=== PATIENT | female | born 1945 | race Caucasian/White ===

== ENCOUNTER 2021-09-25 18:13 | Outpatient (CLI) | payer MEDICARE, OTHER, SELFPAY ==
[2021-09-25 18:18] LABS: Add Urine Microscopic? NO; Charge for UA Resulting for Rev
[2021-09-25 18:31] LABS: Bilirubin Urine Neg (Negative); Blood Urine Neg (Negative); Glucose Urine UA Norm (Normal); Ketones Urine Negative (Negative); Leukocyte Esterase Urine Negative (Negative); Nitrate Urine Negative (Negative); Protein Urine Neg (Negative); Urine Appearance Clear (CLEAR); Urine Color Yellow (Yellow); Urobilinogen Urine Norm (Negative); pH Urine 7 (5-7)
== END 2021-09-25 18:14 | disposition home or self-care (01) ==
PROVIDERS: Family Provider Family Medicine; Visit Provider Family Medicine
DX: N39.0 Urinary tract infection, site not specified (principal)
CPT/HCPCS: 81003; 87086

== ENCOUNTER 2021-10-01 03:18 | Emergency (ER) | payer MEDICARE, OTHER, SELFPAY ==
[2021-10-01] VITALS (10 sets, daily range): BP systolic 133–183; BP diastolic 78–100; PULSE 64–88; RESP 12–26; TEMP 36.6; O2SAT 96–99; BMI 25.7
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
--- NOTE | 2021-10-01 03:36 | XRR_ITS ---
PROCEDURE INFORMATION: Exam: XR Chest Exam date and time: 10/01/2021 3:43 AM Age: 76 years old Clinical indication: Radiating; Prior surgery; Surgery date: 6+ months; Surgery type: RT shoulder; Patient HX: C/O chest pain with radiation to left arm. TECHNIQUE: Imaging protocol: XR of the chest. Views: 1 view. COMPARISON: CR Myelogram Cerv/Thor/Lumb [id number] 06/20/2015 9:09 AM FINDINGS: Lungs: No focal airspace disease. Pleural spaces: Unremarkable. No pleural effusion. No pneumothorax. Heart/Mediastinum: Cardiomediastinal silhouette is within normal limits. Bones/joints: Right reverse total shoulder arthroplasty. XR/XR chest 1V portable [id number] IMPRESSION: No acute cardiopulmonary abnormality.
--- NOTE | 2021-10-01 03:37 | ECG_ITS ---
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 Measurements Intervals [place] Rate: 81 P: 75 NV: 139 QRS: 59 QRSD: 75 T: 62 QT: 368 QTc: 429 Interpretive Statements SINUS RHYTHM No previous ECG available for comparison Electronically Signed On 10-01-2021 20:22:39 CDT by Radha Echols M.D. [id number]
[2021-10-01] MEDS: aspirin 81 mg Chew Tablet 324 MG PO (03:53)
[2021-10-01 04:03] LABS: Basophils # 0.1 10^3/uL (0.0-0.1); Basophils % 1.1 %; Eosinophils # 0.2 10^3/uL (0.0-0.8); Eosinophils % 2.2 %; Hematocrit 42.5 % (37.0-47.0); Lymphocytes # 1.1 10^3/uL (0.8-4.8); Lymphocytes % 15.4 %; Mean Corpuscular HGB Conc 32.9 g/dL (30.0-36.0); Mean Corpuscular Hemoglobin 31.4 pg (28.0-34.0); Mean Corpuscular Volume 95.3 fl (81-99); Mean Platelet Volume 8.8 fL (7.4-10.4); Monocytes # 0.4 10^3/uL (0.2-0.9); Monocytes % 5.6 %; Neutrophils # 5.37 10^3/uL (1.8-7.7); Neutrophils % 75.6 %; Nucleated Red Blood Cells % 0 %; Platelet Count 301 10^3/cmm (130-400); Red Blood Count 4.46 10^6/uL (4.1-5.3); Red Cell Distribution Width 12.4 % (12.1-15.1); White Blood Count 7.1 10^3/uL (4.0-10.0)
[2021-10-01 04:26] LABS: Troponin(5th) Baseline 15 ng/L (0-10)
[2021-10-01] MEDS: acetaminophen 500 mg Tablet 1000 MG PO (04:31)
[2021-10-01 04:36] LABS: Alanine Aminotransferase 8 U/L (0-33); Albumin Level 4.4 g/dL (3.5-5.2); Alkaline Phosphatase 89 IU/L (35-105); Anion Gap 17.7 (5-19); Aspartate Amino Transferase 16 U/L (0-32); Blood Urea Nitrogen 9 mg/dL (8-23); Carbon Dioxide 23 mmol/L (22-29); Chloride 101 mmol/L (98-107); Globulin 3.2 g/dL (1.3-4.6); Glucose 107 mg/dL (65-115); Lipase 28 U/L (13-60); NT Pro B Type Natriuretic Pept 245 pg/mL (0-450); Osmolality Calculated 285 mOsm/kg (285-295); Potassium 3.7 mmol/L (3.5-5.1); Sodium 138 mmol/L (136-145); Thyroid Stimulating Hormone 2.91 uIU/mL (0.27-4.20); Total Bilirubin 0.3 mg/dL (0.15-1.2); Total Protein 7.6 g/dL (6.6-8.7)
[2021-10-01 04:45] LABS: Acetaminophen < 5.0 ug/mL (10-30); Alcohol Level < 10 mg/dL (0-10); Salicylate < 0.3 mg/dL (3-10)
--- NOTE | 2021-10-01 05:37 | ECG_ITS ---
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 Measurements Intervals [place] Rate: 66 P: -9 VT: 157 QRS: -2 QRSD: 69 T: 3 QT: 394 QTc: 415 Interpretive Statements SINUS RHYTHM Compared to ECG 10/01/2021 03:26:07 No significant changes Electronically Signed On 10-01-2021 20:29:39 CDT by Radha Echols M.D. [email or web address]
[2021-10-01 06:11] LABS: Add Urine Microscopic? NO; Charge for UA Resulting for Rev
[2021-10-01 06:29] LABS: Bilirubin Urine Neg (Negative); Blood Urine Neg (Negative); Glucose Urine UA Norm (Normal); Ketones Urine Negative (Negative); Leukocyte Esterase Urine Negative (Negative); Nitrate Urine Negative (Negative); Protein Urine Neg (Negative); Urine Appearance Clear (CLEAR); Urine Color Yellow (Yellow); Urobilinogen Urine Norm (Negative); pH Urine 7 (5-7)
[2021-10-01 06:38] LABS: Amphetamines Screen Urine Negative (Negative); Barbiturates Screen Urine Negative (Negative); Benzodiazepines Screen Urine Negative (Negative); Cocaine Screen Urine Negative (Negative); Opiate Screen Urine Negative (Negative); PCP Screen Urine Negative (Negative); THC Screen Urine Negative (Negative)
[2021-10-01 08:01] LABS: Troponin 5 2HR 14.51 ng/L (0-10)
[2021-10-01 08:19] LABS: Troponin 5 2HR Delta -0.49 ABS# (0-10)
[2021-10-01] MEDS: isosorbide mononitrate ER 60 mg Tablet PO (09:29)
[2021-10-01] MEDS: lisinopril 10 mg Tablet PO (09:29)
[2021-10-01] MEDS: LORazepam 2 mg Tablet PO (09:43)
[2021-10-01 11:52] LABS: Adenovirus Not Detected (NOT DETECT); Chlamydia Pneumoniae Not Detected (NOT DETECT); Coronavirus 229E,HKU1,NL63,OC4 Not Detected (NOT DETECT); Human Metapneumovirus Not Detected (NOT DETECT); Human Rhinovirus/Enterovirus Not Detected (NOT DETECT); Influenza A Not Detected (NOT DETECT); Influenza A H1 Not Detected (NOT DETECT); Influenza A H1-2009 Not Detected (NOT DETECT); Influenza A H3 Not Detected (NOT DETECT); Influenza B Not Detected (NOT DETECT); Mycoplasma Pneumoniae Not Detected (NOT DETECT); Parainfluenza Virus Type 1 Not Detected (NOT DETECT); Parainfluenza Virus Type 2 Not Detected (NOT DETECT); Parainfluenza Virus Type 3 Not Detected (NOT DETECT); Parainfluenza Virus Type 4 Not Detected (NOT DETECT); Respiratory Syncytial Virus A Not Detected (NOT DETECT); Respiratory Syncytial Virus B Not Detected (NOT DETECT); SARS-COV-2 Not Detected (NOT DETECT)
--- NOTE | 2021-10-01 15:50 | PC.NURSE ---
report given to Linda Cool RN at [facility]
== END 2021-10-01 17:34 ==
PROVIDERS: Emergency Medicine; Emergency Provider Family Medicine
DX: R07.89 Other chest pain (principal); I10 Essential (primary) hypertension; G30.9 Alzheimer's disease, unspecified; F02.81 Dementia in other diseases classified elsewhere, unspecified severity, with behavioral disturbance
CPT/HCPCS: 71045; 80053; 80306; 80307; 81003; 83690; 83880; 84443; 84484; 85025; 87635; 93005; 99284

== ENCOUNTER 2021-10-18 10:05 | Emergency (ER) | payer MEDICARE, OTHER, SELFPAY ==
[2021-10-18 10:10] VITALS: BP 146/74; PULSE 75; RESP 16; TEMP 36.9; O2SAT 95; BMI 25.0
--- NOTE | 2021-10-18 10:14 | XRR_ITS ---
PROCEDURE INFORMATION: Exam: XR Right Shoulder Exam date and time: 10/18/2021 11:30 AM Age: 76 years old Clinical indication: Injury or trauma; Fall; Blunt trauma (contusions or hematomas); Shoulder; Right; Prior surgery; Additional info: Pain after fall TECHNIQUE: Imaging protocol: XR Right shoulder. Views: 2 or more views. COMPARISON: CT cervical spin wo con* [id number] 10/18/2021 11:23 AM FINDINGS: Bones/joints: Intact reverse right total shoulder arthroplasty in expected alignment. Osseous structures are intact. Negative for fracture. Soft tissues: Normal. XR/XR shoulder RT min 2V* [id number] IMPRESSION: No acute findings.
--- NOTE | 2021-10-18 10:15 | XRR_ITS ---
PROCEDURE INFORMATION: Exam: XR Left Hip Exam date and time: 10/18/2021 11:27 AM Age: 76 years old Clinical indication: Injury or trauma; Fall; Blunt trauma (contusions or hematomas); Left; Hip TECHNIQUE: Imaging protocol: XR Left hip. Views: 2 or 3 views hip with pelvis when performed. COMPARISON: CR Lumbar Spine Flex/Extens [id number] 08/09/2017 3:34 PM FINDINGS: Tubes, catheters and devices: Left inguinal hernia repair mesh noted. Bones/joints: Unremarkable. No acute fracture. Soft tissues: Unremarkable. XR/XR hip LT 2-3V wo/w pel* [id number] IMPRESSION: No acute findings.
--- NOTE | 2021-10-18 10:25 | CTR_ITS ---
PROCEDURE INFORMATION: Exam: CT Maxillofacial Without Contrast Exam date and time: 10/18/2021 11:26 AM Age: 76 years old Clinical indication: Injury or trauma; Fall; Blunt trauma (contusions or hematomas); Ocular (eye or eyeball) and orbit/periorbital; Left TECHNIQUE: Imaging protocol: Computed tomography images of the face without contrast. Radiation optimization: All CT scans at this facility use at least one of these dose optimization techniques: automated exposure control; mA and/or kV adjustment per patient size (includes targeted exams where dose is matched to clinical indication); or iterative reconstruction. COMPARISON: CT head wo con* [id number] 10/18/2021 11:19 AM RADIATION DOSE METRICS: Total DLP (mGy-cm): 693.78 FINDINGS: Orbital cavities: There is asymmetric enlargement of the left inferior rectus muscle. There is edema and trace blood in the extraconal inferior left orbit. Globes are intact. There is subtle intraconal edema in the left orbit. No retrobulbar hemorrhage. Optic nerves are symmetric. Bones/joints: The mandible is intact. Condylar alignment is normal. Nondisplaced bilateral nasal fractures. There is a depressed fracture of the left orbital floor traversing the canal for the infraorbital nerve. The medial aspect of the orbital floor is depressed by 6 mm relative to the lateral aspect. The right orbit is intact. Zygomatic arches are intact. Pterygoid plates are intact. The skull base and upper cervical spine are intact. Severe degenerative disease in the upper cervical spine. Paranasal sinuses: The paranasal sinuses are clear. Mastoid air cells: The mastoid air cells are clear. Auditory system: Middle ears are clear. Soft tissues: There is left preseptal and periorbital edema. CT/CT facial bones wo con* [id number] IMPRESSION: 1. Mildly depressed fracture of the left orbital floor. 2. Trace intraconal edema in the left orbit. Intact globe. Unremarkable optic nerve. No visible intraconal hemorrhage. Small volume inferior extraconal hemorrhage. 3. Enlargement of the left inferior rectus muscle. This could be related to intramuscular bleeding or adjacent extraconal bleeding. There is no visible entrapment. Correlate with clinical signs of extraocular muscle entrapment. 4. Left periorbital contusions. 5. Nondisplaced bilateral nasal fractures.
--- NOTE | 2021-10-18 10:25 | CTR_ITS ---
PROCEDURE INFORMATION: Exam: CT Head Without Contrast Exam date and time: 10/18/2021 11:19 AM Age: 76 years old Clinical indication: Injury or trauma; Fall; Blunt trauma (contusions or hematomas); Consciousness not specified TECHNIQUE: Imaging protocol: Computed tomography of the head without contrast. Radiation optimization: All CT scans at this facility use at least one of these dose optimization techniques: automated exposure control; mA and/or kV adjustment per patient size (includes targeted exams where dose is matched to clinical indication); or iterative reconstruction. COMPARISON: CT Cervical Spine w cont [id number] 06/20/2015 10:04 AM RADIATION DOSE METRICS: Total DLP (mGy-cm): 786.02 FINDINGS: Brain: No hemorrhage. No edema. Moderate diffuse cerebral atrophy. Old punctate bilateral basal ganglia lacunar infarcts. No mass effect. Cerebral ventricles: No ventriculomegaly. Paranasal sinuses: Visualized sinuses are unremarkable. No fluid levels. Mastoid air cells: Visualized mastoid air cells are well aerated. Bones/joints: Unremarkable. No acute fracture. Soft tissues: Left periorbital hematoma. CT/CT head wo con* [id number] IMPRESSION: No acute intracranial abnormality.
--- NOTE | 2021-10-18 10:25 | CTR_ITS ---
PROCEDURE INFORMATION: Exam: CT Cervical Spine Without Contrast Exam date and time: 10/18/2021 11:23 AM Age: 76 years old Clinical indication: Injury or trauma; Fall; Blunt trauma TECHNIQUE: Imaging protocol: Computed tomography images of the cervical spine without contrast. Radiation optimization: All CT scans at this facility use at least one of these dose optimization techniques: automated exposure control; mA and/or kV adjustment per patient size (includes targeted exams where dose is matched to clinical indication); or iterative reconstruction. COMPARISON: CT Cervical Spine w cont [id number] 06/20/2015 10:04 AM RADIATION DOSE METRICS: Total DLP (mGy-cm): 609.23 FINDINGS: Bones/joints: There is accentuated cervical lordosis. There is trace anterolisthesis of C3 on C4, C4 on C5, C5 on C6, C7 on T1. Vertebral body height is maintained. There is moderate to severe multilevel facet spondylosis. No acute fracture. Discs/Spinal canal/Neural foramina: There is moderate degenerative disc disease in the cervical spine. There is mild multilevel spinal canal stenosis. Lungs: There is mild bilateral apical subpleural scarring. Centrilobular emphysema noted. Soft tissues: Soft tissues in the neck and thoracic inlet are unremarkable. CT/CT cervical spin wo con* [id number] IMPRESSION: 1. No acute fracture. 2. Incidental findings above.
--- NOTE | 2021-10-18 10:40 | W.ED.FALL ---
HPI - Fall General: Chief Complaint: Fall Stated Complaint: LEFT HIP/ RIGHT SHOULDER PAIN S/P FALL Time Seen by Provider: 10/18/21 10:07 Source: patient Mode of arrival: EMS Limitations: no limitations History of Present Illness: 76-year-old female presents emergency room after a fall. She stumbled and fell at home. She did not strike her head there is no loss consciousness she was unable to get up EMS was called and assisted her. She is complaining of pain in her left hip and a little bit of pain in her right shoulder. She has a large ecchymotic area around her right eye with some preop ptosis. She is otherwise awake and alert she denies any anticoagulants. No chest pain no shortness of breath no abdominal pain. No recent illness otherwise. MD complaint: fall Onset (ago): minute(s) Fall from: standing Fall witnessed: yes, by bystander Place fall occurred: home Loss of consciousness: None Prolonged down time: no Symptoms prior to fall: none Context: tripped/slipped Location of injury: face Location of injury - extremities: Left: thigh (Left hip) and Right: shoulder Severity: moderate Associated symptoms-after fall: Denies abdominal pain, chest pain, confusion, difficulty walking, headache(s), hematuria, lightheadedness, neck pain, numbness, short of breath, vertigo or weakness Review of Systems Const: Denies: fever(s), chills, body aches, change in appetite, fatigue or malaise ENMT: Denies: throat pain, ear or mastoid pain, nasal discharge or nasal congestion Card: Denies: chest pain or lightheadedness Resp: Denies: dyspnea, productive cough or non-productive cough GI: Denies: abdominal pain : Denies: hematuria Musc: Denies: neck pain Skin/Breast: Denies: rash or pruritus Neuro: Denies: headache(s), difficulty walking, vertigo or confusion PFSH ED PFSH: Medical History Chronic lumbar pain Dementia Major depressive disorder Physical Exam Const: GENERAL APPEARANCE: frail appearing ORIENTATION/CONSCIOUSNESS: Yes awake HENMT: COMMON NORMALS: normocephalic, atraumatic and hearing grossly normal bilaterally HEAD & SCALP: normocephalic and atraumatic Eye: COMMON NORMALS: Equal, round and reactive pupils present and EOMs intact bilaterally PERIORBITAL: periorbital findings abnormal positive left periorbital swelling and periorbital ecchymosis PUPIL: Yes Equal, round and reactive pupils present Neck/C-Spine: COMMON NORMALS: no JVD Resp: COMMON NORMALS: normal respiratory effort, No retractions, No use of accessory muscles and clear to auscultation bilaterally AUSCULTATION: clear to auscultation bilaterally Cardio: COMMON NORMALS: no JVD, regular rate, regular rhythm and No murmurs present (Cardio) RATE: regular rate RHYTHM: regular rhythm GI: COMMON NORMALS: Soft to palpation and No hepatosplenomegaly present AUSCULTATION: Yes normoactive bowel sounds PALPATION: Yes Soft to palpation, No Tenderness to palpation present (GI), No Guarding due to palpation present (GI) and Yes No hepatosplenomegaly present Extremity: COMMON NORMALS: normal to inspection, capillary refill normal, no clubbing, cyanosis or edema, no calf tenderness and no pedal edema Psych: ATTITUDE: Yes evasive (Suspect is due to her dementia) Course Vital Signs: Vital signs: Vital Signs Temperature 98.4 F 10/18/21 10:10 Pulse Rate 77 10/18/21 13:36 Respiratory Rate 16 10/18/21 13:36 Blood Pressure 153/74 10/18/21 13:36 Pulse Oximetry 93 10/18/21 13:36 MDM - Fall Medical Decision Making Orbital floor fracture with some periorbital fat entrapment but no inferior rectus muscle entrapment. Will refer to ophthalmology. Discussed with the patient return if has any further problems. Repeat exam just prior to discharge patient had full range of motion of extraocular movements with no evidence of entrapment Lab Data Radiology Impressions Shoulder X-Ray 10/18/21 10:14 IMPRESSION: No acute findings. Hip/Pelvis X-Ray 10/18/21 10:15 IMPRESSION: No acute findings. Cervical Spine CT 10/18/21 10:25 IMPRESSION: 1. No acute fracture. 2. Incidental findings above. Face CT 10/18/21 10:25 IMPRESSION: 1. Mildly depressed fracture of the left orbital floor. 2. Trace intraconal edema in the left orbit. Intact globe. Unremarkable optic nerve. No visible intraconal hemorrhage. Small volume inferior extraconal hemorrhage. 3. Enlargement of the left inferior rectus muscle. This could be related to intramuscular bleeding or adjacent extraconal bleeding. There is no visible entrapment. Correlate with clinical signs of extraocular muscle entrapment. 4. Left periorbital contusions. 5. Nondisplaced bilateral nasal fractures. Head CT 10/18/21 10:25 IMPRESSION: No acute intracranial abnormality. Laboratory Results Ethyl Alcohol < 10 mg/dL (0-10) 10/18/21 09:20 Discharge Plan Discharge Patient Disposition: Home Clinical Impression: Fracture of left orbital floor Condition: Stable Prescriptions: No Action acetaminophen 500 mg tablet 500 mg PO Q6H PRN (Reason: Pain) 0RF albuterol sulfate 90 mcg/actuation HFA aerosol inhaler 2 puff inhalation Q4H PRN (Reason: Shortness Of Breath) 0RF atorvastatin 10 mg tablet 10 mg PO DAILY@08 0RF bupropion HCl 150 mg tablet sustained-release 12 hr 150 mg PO BID@08,16 0RF cholecalciferol (vitamin D3) 125 mcg (5,000 unit) capsule 125 mcg PO DAILY@08 0RF cyclobenzaprine 10 mg tablet 10 mg PO BID PRN (Reason: Muscle Spasm) 0RF donepezil 10 mg tablet 10 mg PO BEDTIME@20 0RF estradiol 1 mg tablet 1 mg PO DAILY@08 0RF isosorbide mononitrate 60 mg tablet extended release 24 hr 60 mg PO DAILY@08 0RF levothyroxine 50 mcg tablet 50 mcg PO DAILY@08 0RF lisinopril 10 mg tablet 10 mg PO DAILY@08 0RF paroxetine HCl 40 mg tablet 40 mg PO DAILY@08 0RF theophylline 300 mg tablet extended release 12 hr 300 mg PO Q12H 0RF trazodone 150 mg tablet See Rx Instructions .ROUTE .COMPLEX 0RF Rx Instructions: 150 mg orally po at 22:00 and take 150mg po nightly at 1am prn diphenoxylate-atropine 2.5-0.025 mg tablet 1 tab PO BID PRN (Reason: diarrhea) Qty: 60 0RF oxycodone-acetaminophen [Percocet] 10-325 mg tablet 1 tab PO Q6H 30 Days Qty: 120 0RF Rx Instructions: @02:00,08:00,14:00,20:00 diphenhydramine HCl 25 mg Tablet 25 mg PO Q6H PRN (Reason: Itching) 0RF Tussin DM 10-100 mg/5 mL Liquid 10 ml PO Q4H PRN (Reason: Cough) 0RF fexofenadine 180 mg Tablet 180 mg PO DAILY PRN (Reason: Allergy Symptoms) 0RF memantine 14 mg Capsule,Sprinkle,Er 24hr 14 mg PO DAILY@08 0RF Prevagen 1 cap PO DAILY@08 0RF Discharge Orders: Discharge ED (Routine); Ordered 10/18/21 Ordered By: Sammy Benavidez Patient Instructions: Opioid Safety Activity Restrictions/Additional Instructions: Follow-up with Dr. Gold within the next week. Coding Level of Care Code ED Mechanical Engineering Intern for Adelina Fwd Exam Comprehensive
--- NOTE | 2021-10-18 11:02 | PC.NURSE ---
While at bedside patient is up in room. She is taken off her c-collar and soiled her bed with urine. Complete bed change performed for incontinence of urine. Notified Dr. Huang of patient's removal of c-collar verbal order to place c-collar back on patient. While at bedside c-collar reapplied. Patient denies being able to provide a urine specimen at this time patient is in no apparent distress.
[2021-10-18 11:06] LABS: Alcohol Level < 10 mg/dL (0-10)
--- NOTE | 2021-10-18 11:58 | PC.NURSE ---
Patient resting quietly in bed with ice pack over her left eye. Patient is in no apparent distress and has good chest rise and fall.
[2021-10-18] MEDS: HYDROcodone-acetaminophen 5-325 mg Tablet 1 TAB PO (13:35)
[2021-10-18 13:36] VITALS: BP 153/74; PULSE 77; RESP 16; O2SAT 93
--- NOTE | 2021-10-20 11:40 | DCPLANNER ---
Addendum entered by Lorraine Sampson 12/08/21 15:20: Patient has a follow up appointment scheduled for February. Original Note: manager code had message to schedule a follow up appointment for patient with Dr. Gold. manager code sent patients information to the office of Dr. Gold. Patients information will be reviewed. Clinic will call patient with appointment information.
== END 2021-10-18 13:48 | disposition home or self-care (01) ==
PROVIDERS: Emergency Provider Family Medicine
DX: S02.32XA Fracture of orbital floor, left side, initial encounter for closed fracture (principal); W01.0XXA Fall on same level from slipping, tripping and stumbling without subsequent striking against object, initial encounter; Y92.009 Unspecified place in unspecified non-institutional (private) residence as the place of occurrence of the external cause; M25.552 Pain in left hip; M25.511 Pain in right shoulder
CPT/HCPCS: 70450; 70486; 72125; 73030; 73502; 80307; 99284

== ENCOUNTER 2023-05-17 09:12 | Emergency (ER) | payer OTHER, SELFPAY ==
[2023-05-17 09:14] VITALS: BP 94/53; PULSE 86; RESP 16; TEMP 36.2; O2SAT 100; BMI 25.0
--- NOTE | 2023-05-17 09:16 | W.ED.FALL ---
HPI - Fall General: Chief Complaint: Fall Stated Complaint: fall Time Seen by Provider: 05/17/23 09:15 Source: patient Mode of arrival: EMS History of Present Illness: 77-year-old female brought in by EMS from local detention where she resides in a memory care unit she was found down on the floor this morning uncertain how long she been down. She does take quite a bit of opioids. She is aware that she is in a detention and she fell she tells me her low back hurts and her face she does have obvious bruising bilaterally at the temples and the supraorbital ridges no active bleeding no lacerations. She is not able to tell me if she lost consciousness no report of vomiting. MD complaint: fall Fall from: standing Review of Systems General: Reports: ROS unobtainable due to mental status PFSH ED PFSH: Medical History Chronic lumbar pain Dementia Major depressive disorder Physical Exam Const: GENERAL APPEARANCE: cooperative and comfortable ORIENTATION/CONSCIOUSNESS: Yes awake HENMT: COMMON NORMALS: normocephalic, atraumatic and hearing grossly normal bilaterally HEAD & SCALP: normocephalic and atraumatic Resp: COMMON NORMALS: normal respiratory effort, No retractions, No use of accessory muscles and clear to auscultation bilaterally AUSCULTATION: clear to auscultation bilaterally Cardio: COMMON NORMALS: regular rate, regular rhythm and No murmurs present (Cardio) RATE: regular rate RHYTHM: regular rhythm GI: COMMON NORMALS: Soft to palpation and No hepatosplenomegaly present AUSCULTATION: Yes normoactive bowel sounds PALPATION: Yes Soft to palpation, No Tenderness to palpation present (GI), No Guarding due to palpation present (GI) and Yes No hepatosplenomegaly present Extremity: COMMON NORMALS: normal to inspection, capillary refill normal, no clubbing, cyanosis or edema, no calf tenderness and no pedal edema Skin: COMMON NORMALS: no rashes or lesions noted GENERAL SKIN EXAM: no rashes or lesions noted Course Vital Signs: Vital signs: Vital Signs Temperature 97.2 F L 05/17/23 09:14 Pulse Rate 70 05/17/23 10:05 Respiratory Rate 16 05/17/23 10:05 Blood Pressure 114/51 05/17/23 10:05 Pulse Oximetry 100 05/17/23 10:05 Oxygen Delivery Me thod Nasal Cannula 05/17/23 09:14 Oxygen Flow Rate 3 05/17/23 09:14 MDM - Fall Medical Decision Making Labs and imaging reviewed no acute findings. She is anemic. No apparent fracture she has some bruising on her face no pain or crepitus palpation along the orbital ridges. Discharge patient back to detention follow-up with primary care as needed Medical Records I reviewed the patient's medical records. Lab Data I reviewed the patient's lab results. 05/17/23 10:01 05/17/23 10:01 Radiology Impressions Cervical Spine CT 05/17/23 09:32 IMPRESSION: 1. No acute fracture. 2. Ligamentous hypertrophy and calcification at the atlantodental joint with erosions of the dens suggest chronic CPPD arthropathy. 3. Moderate diffuse cervical disc and facet degeneration without high-grade spinal stenosis. Lumbar Spine CT 05/17/23 09:32 IMPRESSION: 1. No acute fracture. 2. Grade 1 anterolisthesis of L3 on L4 by approximately 6 mm, similar to prior exam in 2016. 3. Grade 2 anterolisthesis of L4 on L5 by approximately 12 mm, worsened compared to prior exam in 2016 when it measured up to approximately 5 mm. 4. Posterior spinal fixation hardware appears intact. Lucency adjacent to the transpedicular screws at L4 and L5 concerning for loosening. 5. Spinal canal narrowing at L2-L3, as previously noted on prior exam in 2016, with possible progression. 6. Right-sided neural foraminal narrowing at L4-L5. Head CT 05/17/23 09:33 IMPRESSION: 1. No acute intracranial abnormality. 2. Right frontal scalp contusion. Laboratory Results WBC 9.53 10^3/uL (3.29-11.43) 05/17/23 10:01 RBC 3.76 10^6/uL (3.85-5.65) L 05/17/23 10:01 Hgb 10.60 g/dL (11.27-16.99) L 05/17/23 10:01 Hct 34.8 % (36-47) L 05/17/23 10:01 MCV 92.6 fl (85-98) 05/17/23 10:01 MCH 28.2 pg (27-33) 05/17/23 10:01 MCHC 30.5 g/dL (30-55) 05/17/23 10:01 RDW 14.6 % (12.1-15.1) 05/17/23 10:01 Plt Count 582 10^3/cmm (157-399) H 05/17/23 10:01 MPV 8.6 fL (7.4-10.4) 05/17/23 10:01 Neut % (Auto) 84.6 % 05/17/23 10:01 Lymph % (Auto) 6.6 % 05/17/23 10:01 [place] % (Auto) 4.8 % 05/17/23 10:01 Eos % (Auto) 3.0 % 05/17/23 10:01 Baso % (Auto) 0.7 % 05/17/23 10:01 Neut # (Auto) 8.05 10^3/uL (1.8-7.7) H 05/17/23 10:01 Lymph # (Auto) 0.6 10^3/uL (0.8-4.8) L 05/17/23 10:01 [place] # (Auto) 0.5 10^3/uL (0.2-0.9) 05/17/23 10:01 Eos # (Auto) 0.3 10^3/uL (0.0-0.8) 05/17/23 10:01 Baso # (Auto) 0.1 10^3/uL (0.0-0.1) 05/17/23 10:01 Nucleated RBC % (auto) 0 % 05/17/23 10:01 Nucleated RBCs # 0.0 /100WBC 05/17/23 10:01 Sodium 137 mmol/L (136-145) 05/17/23 10:01 Potassium 3.3 mmol/L (3.5-5.1) L 05/17/23 10:01 Chloride 101 mmol/L (98-107) 05/17/23 10:01 Carbon Dioxide 27 mmol/L (22-29) 05/17/23 10:01 Anion Gap 12.3 (5-19) 05/17/23 10:01 BUN 11 mg/dL (8-23) 05/17/23 10:01 Creatinine 0.8 mg/dL (0.5-0.9) 05/17/23 10:01 GFR Calculation Not Reportable 05/17/23 10:01 Glucose 119 mg/dL (65-115) H 05/17/23 10:01 Calculated Osmolality 285 mOsm/kg (285-295) 05/17/23 10:01 Calcium 9.2 mg/dL (8.5-10.5) 05/17/23 10:01 Total Bilirubin 0.2 mg/dL (0.15-1.2) 05/17/23 10:01 AST 23 U/L (0-32) 05/17/23 10:01 ALT 7 U/L (0-33) 05/17/23 10:01 Alkaline Phosphatase 91 U/L (35-105) 05/17/23 10:01 Total Protein 6.5 g/dL (6.6-8.7) L 05/17/23 10:01 Albumin 2.9 g/dL (3.5-5.2) L 05/17/23 10:01 Globulin 3.6 g/dL (1.3-4.6) 05/17/23 10:01 All radiology interpretation(s) finalized by discharge Discharge Plan Discharge Patient Disposition: Home Clinical Impression: Fall, CHI (closed head injury), Anemia Condition: Stable Prescriptions: No Action albuterol sulfate 90 mcg/actuation HFA aerosol inhaler 2 puff inhalation Q4H PRN (Reason: Shortness Of Breath) donepezil 10 mg tablet 10 mg PO BEDTIME@20 isosorbide mononitrate 60 mg tablet extended release 24 hr 60 mg PO DAILY@08 Rx Instructions: hold for sbp <100 or p <60 levothyroxine 50 mcg tablet 50 mcg PO DAILY@08 lisinopril 10 mg tablet 10 mg PO DAILY@08 theophylline 300 mg tablet extended release 12 hr 300 mg PO Q12H ipratropium-albuterol 0.5 mg-3 mg(2.5 mg base)/3 mL solution for nebulization 3 ml INHALATION Q4H PRN (Reason: Cough) morphine concentrate 100 mg/5 mL (20 mg/mL) solution See Rx Instructions .ROUTE .COMPLEX Rx Instructions: give 0.5ml to 1ml sublingually every 2 hours as needed for pain Aspir-81 81 mg Tablet,Delayed Release (Dr/Ec) 81 mg PO QAM risperidone 2 mg tablet 2 mg PO DAILY benzonatate 100 mg capsule 100 mg PO Q8H PRN (Reason: Cough) paroxetine HCl 30 mg tablet 30 mg PO DAILY Nitrostat 0.4 mg Tablet, Sublingual 0.4 mg SUBLINGUAL Q5M PRN (Reason: Chest Pain) Rx Instructions: do not exceed 3 doses per episode Lorazepam Intensol 2 mg/mL concentrate See Rx Instructions .ROUTE .COMPLEX Rx Instructions: give 0.25ml po q4h prn for anxiety for 6 months (end date 08/10/2023) TwoCal HN Liquid See Rx Instructions .ROUTE .COMPLEX Rx Instructions: give 90ml po three times a day for weight loss budesonide-formoterol 80-4.5 mcg/actuation Hfa Aerosol Inhaler 2 puff INHALATION BID memantine 21 mg capsule,sprinkle,ER 24hr 21 mg PO DAILY OxyContin 10 mg tablet,oral only,ext.rel.12 hr 10 mg PO Q12H diphenoxylate-atropine 2.5-0.025 mg tablet 2 tab PO Q24H PRN (Reason: loose stools) Discharge Orders: Discharge ED (Routine); Ordered 05/17/23 Ordered By: Sammy Benavidez Discharge Diet: Usual diet Discharge Activity: Increase activity as tolerated Patient Instructions: Opioid Safety, Pain Management Activity Restrictions/Additional Instructions: Thank you for choosing [facility] for your healthcare needs today. Please realize this is an emergency room and that we are providing you with a medical screening exam and this may not be complete and all inclusive of all the testing and or work up that you may need to determine your ailment or severity of your illness. It is very important that you follow up as instructed or that you return to the Emergency Department should you have concerns or if your condition changes or worsens in any way. You are seen today after a fall imaging was unremarkable there are no acute fractures or a lot of chronic changes to your low back but nothing new or acute related to this fall. Laboratory studies show some mild anemia but otherwise are unremarkable. Follow-up with your primary care doctor as needed Coding Level of Care Code ED Grinding Mill Operator for Adelina Gonzalez
--- NOTE | 2023-05-17 09:32 | CTR_ITS ---
PROCEDURE INFORMATION: Exam: CT Lumbar Spine Without Contrast Exam date and time: 05/17/2023 9:47 AM Age: 77 years old Clinical indication: Injury or trauma; Fall; Blunt trauma (contusions or hematomas); Prior surgery; Surgery date: 6+ months; Surgery type: Lumbar TECHNIQUE: Imaging protocol: Computed tomography of the lumbar spine without contrast. Radiation optimization: All CT scans at this facility use at least one of these dose optimization techniques: automated exposure control; mA and/or kV adjustment per patient size (includes targeted exams where dose is matched to clinical indication); or iterative reconstruction. REPORTING DATA: Count of CT and Cardiac NM exams in prior 12 months: This patient has received 0 known CTs and 0 known cardiac nuclear medicine studies in the 12 months prior to the current study. COMPARISON: 1. CT Lumbar Spine w contra [id number] 06/20/2015 10:10 AM 2. CR XR lumbar spine f/e only [id number] 08/09/2017 3:34 PM RADIATION DOSE METRICS: Total DLP (mGy-cm): 784.23 FINDINGS: Bones/joints: Posterior spinal fixation hardware extending from L3-L5 with intervertebral disc spacers. Lucency adjacent to the transpedicular screws at L4 and L5 concerning for loosening. The lumbar spine maintains a lordotic curvature. Grade 1 anterolisthesis of L3 on L4 by approximately 6 mm, similar to prior exam in 2016. Grade 2 anterolisthesis of L4 on L5 by approximately 12 mm, worsened compared to prior exam in 2016 when it measured up to approximately 5 mm. The vertebral bodies maintain normal height. No fracture. Loss of intervertebral disc height at L2-L3 with endplate degenerative changes. Multilevel facet arthropathy. Spinal canal narrowing at L2-L3. Right-sided neural foraminal narrowing at L4-L5. Soft tissues: The paravertebral soft tissues are unremarkable. CT/CT lumbar spine wo con* [id number] IMPRESSION: 1. No acute fracture. 2. Grade 1 anterolisthesis of L3 on L4 by approximately 6 mm, similar to prior exam in 2016. 3. Grade 2 anterolisthesis of L4 on L5 by approximately 12 mm, worsened compared to prior exam in 2016 when it measured up to approximately 5 mm. 4. Posterior spinal fixation hardware appears intact. Lucency adjacent to the transpedicular screws at L4 and L5 concerning for loosening. 5. Spinal canal narrowing at L2-L3, as previously noted on prior exam in 2016, with possible progression. 6. Right-sided neural foraminal narrowing at L4-L5.
--- NOTE | 2023-05-17 09:32 | CTR_ITS ---
PROCEDURE INFORMATION: Exam: CT Cervical Spine Without Contrast Exam date and time: 05/17/2023 9:42 AM Age: 77 years old Clinical indication: Injury or trauma; Fall; Concussion/head injury TECHNIQUE: Imaging protocol: Computed tomography of the cervical spine without contrast. Radiation optimization: All CT scans at this facility use at least one of these dose optimization techniques: automated exposure control; mA and/or kV adjustment per patient size (includes targeted exams where dose is matched to clinical indication); or iterative reconstruction. REPORTING DATA: Count of CT and Cardiac NM exams in prior 12 months: This patient has received 0 known CTs and 0 known cardiac nuclear medicine studies in the 12 months prior to the current study. COMPARISON: CT cervical spin wo con* [id number] 10/18/2021 11:23 AM RADIATION DOSE METRICS: Total DLP (mGy-cm): 626.2 FINDINGS: Bones/joints: There is grade 1 degenerative anterolisthesis of C4 on C5, C5 on C6, C6 on C7, C7 on T1, and T1 on T2.There is moderate diffuse degenerative disc disease in the cervical spine. Vertebral body height is maintained. There is ligamentous hypertrophy and calcification about the dens. There are ill-defined erosions in the anterior superior aspect of the dens. There is moderate multilevel facet spondylosis. No acute fracture. There is mild multilevel spinal canal stenosis. Lungs: Severe centrilobular emphysema in the lung apices. Soft tissues: Soft tissues in the neck and thoracic inlet are unremarkable. CT/CT cervical spin wo con* [id number] IMPRESSION: 1. No acute fracture. 2. Ligamentous hypertrophy and calcification at the atlantodental joint with erosions of the dens suggest chronic CPPD arthropathy. 3. Moderate diffuse cervical disc and facet degeneration without high-grade spinal stenosis.
--- NOTE | 2023-05-17 09:33 | CTR_ITS ---
PROCEDURE INFORMATION: Exam: CT Head Without Contrast Exam date and time: 05/17/2023 9:42 AM Age: 77 years old Clinical indication: Injury or trauma; Fall; Concussion/head injury; Consciousness not specified TECHNIQUE: Imaging protocol: Computed tomography of the head without contrast. Radiation optimization: All CT scans at this facility use at least one of these dose optimization techniques: automated exposure control; mA and/or kV adjustment per patient size (includes targeted exams where dose is matched to clinical indication); or iterative reconstruction. REPORTING DATA: Count of CT and Cardiac NM exams in prior 12 months: This patient has received 0 known CTs and 0 known cardiac nuclear medicine studies in the 12 months prior to the current study. COMPARISON: CT head wo con* [id number] 10/18/2021 11:19 AM RADIATION DOSE METRICS: Total DLP (mGy-cm): 901.3 FINDINGS: Brain: There is diffuse cerebral atrophy and chronic microvascular white matter disease. There is no significant mass effect or midline shift. There is no acute intracranial hemorrhage. Cerebral ventricles: There is mild ex vacuo dilation of the lateral ventricles. The basal cisterns are unremarkable. Paranasal sinuses: The paranasal sinuses are clear. Mastoid air cells: The mastoid air cells are clear. Bones/joints: The calvarium is intact. Soft tissues: Right frontal scalp contusion. CT/CT head wo con* [id number] IMPRESSION: 1. No acute intracranial abnormality. 2. Right frontal scalp contusion.
[2023-05-17 09:40] VITALS: BP 110/64; PULSE 84; RESP 16; O2SAT 100
--- NOTE | 2023-05-17 09:41 | PC.PHAR ---
pt is from [facility] charge nurse talked to [facility] states the pt had no medications today
[2023-05-17 10:05] VITALS: BP 114/51; PULSE 70; RESP 16; O2SAT 100
[2023-05-17 10:10] LABS: Basophils # 0.1 10^3/uL (0.0-0.1); Basophils % 0.7 %; Eosinophils # 0.3 10^3/uL (0.0-0.8); Hematocrit 34.8 % (36-47); Lymphocytes # 0.6 10^3/uL (0.8-4.8); Lymphocytes % 6.6 %; Mean Corpuscular HGB Conc 30.5 g/dL (30-55); Mean Corpuscular Hemoglobin 28.2 pg (27-33); Mean Corpuscular Volume 92.6 fl (85-98); Mean Platelet Volume 8.6 fL (7.4-10.4); Monocytes # 0.5 10^3/uL (0.2-0.9); Monocytes % 4.8 %; Neutrophils # 8.05 10^3/uL (1.8-7.7); Neutrophils % 84.6 %; Nucleated Red Blood Cells % 0 %; Platelet Count 582 10^3/cmm (157-399); Red Blood Count 3.76 10^6/uL (3.85-5.65); Red Cell Distribution Width 14.6 % (12.1-15.1); White Blood Count 9.53 10^3/uL (3.29-11.43)
[2023-05-17 10:25] LABS: Alanine Aminotransferase 7 U/L (0-33); Albumin Level 2.9 g/dL (3.5-5.2); Alkaline Phosphatase 91 U/L (35-105); Anion Gap 12.3 (5-19); Aspartate Amino Transferase 23 U/L (0-32); Blood Urea Nitrogen 11 mg/dL (8-23); Calcium 9.2 mg/dL (8.5-10.5); Carbon Dioxide 27 mmol/L (22-29); Chloride 101 mmol/L (98-107); Globulin 3.6 g/dL (1.3-4.6); Glucose 119 mg/dL (65-115); Osmolality Calculated 285 mOsm/kg (285-295); Potassium 3.3 mmol/L (3.5-5.1); Sodium 137 mmol/L (136-145); Total Bilirubin 0.2 mg/dL (0.15-1.2); Total Protein 6.5 g/dL (6.6-8.7)
== END 2023-05-17 11:10 | disposition home or self-care (01) ==
PROVIDERS: Emergency Provider Family Medicine
DX: S09.8XXA Other specified injuries of head, initial encounter (principal); D64.9 Anemia, unspecified; Z79.82 Long term (current) use of aspirin; F03.90 Unspecified dementia, unspecified severity, without behavioral disturbance, psychotic disturbance, mood disturbance, and anxiety; W19.XXXA Unspecified fall, initial encounter; Y92.129 Unspecified place in nursing home as the place of occurrence of the external cause; S00.83XA Contusion of other part of head, initial encounter; Z79.891 Long term (current) use of opiate analgesic
CPT/HCPCS: 70450; 72125; 72131; 80053; 85025; 99284